=== PATIENT | male | born 1960 | race Caucasian/White ===

== ENCOUNTER 2025-02-21 06:22 | Emergency (ER) | payer OTHER ==
[2025-02-21] MEDS ORDERED: Acetaminophen 500 MG TAB ONE (08:36)
== END 2025-02-21 09:45 ==
LOC: EEVIPCON 06:22 → NAV ERS 06:22
DX: G89.11 Acute pain due to trauma (principal); M54.2 Cervicalgia; M25.551 Pain in right hip; E03.9 Hypothyroidism, unspecified; I10 Essential (primary) hypertension; Z79.890 Hormone replacement therapy; Z79.899 Other long term (current) drug therapy; W19.XXXA Unspecified fall, initial encounter
CPT/HCPCS: 70450; 72125; G0390

== ENCOUNTER 2025-02-22 06:06 | Emergency (ER) | payer OTHER ==
[2025-02-22] MEDS ORDERED: Ondansetron PF 4 MG/2 ML Vial ONE (06:32)
[2025-02-22 06:42] LABS: #Basophils 0.1 thou/uL (0.0-0.2); #Eosinophils 0.1 thou/uL (0.0-0.7); #Lymphocytes 0.9 thou/uL (1.20-3.40); #Monocytes 0.5 thou/uL (0.11-0.59); #Neutrophils 3.4 thou/uL (1.40-6.50); %Basophils 1.0 % (0.0-1.0); %Eosinophils 1.0 % (0.0-10.0); %Lymphocytes 18.8 % (21.0-51.0); %Monocytes 9.2 % (0.0-10.0); %Neutrophils 70.0 % (42.0-75.0); Hematocrit 41.9 % (42.0-52.0); Hemoglobin 14.4 g/dL (14.0-18.0); Mean Corpuscular Hemoglobin 29.1 pg (27.0-31.0); Mean Corpuscular Volume 85.0 fl (78.0-98.0); Platelet Count 200 10x3/uL (130-400); Red Blood Cell (RBC) Count 4.93 mill/uL (4.70-6.10); White Blood Cell (WBC) Count 4.9 10x3/uL (4.8-10.8)
[2025-02-22 06:56] LABS: ALT (SGPT) 14 U/L (Less than 45); AST (SGOT) 22 U/L (11-34); Albumin 4.0 g/dL (3.1-4.5); Alkaline Phosphatase 46 U/L (40-110); Anion Gap 13 mmol/L (10-20); BUN (Urea Nitrogen) 15 mg/dL (8.4-25.7); Bilirubin, Total 0.6 mg/dL (0.3-1.2); Calc. Creatinine Clearance 0 mL/min (70-130); Calcium 9.9 mg/dL (7.8-10.44); Carbon Dioxide 21 mmol/L (23-31); Chloride 110 mmol/L (98-107); Globulin 2.7 g/dL (2.4-3.5); Glucose 91 mg/dL (80-115); Potassium 4.4 mmol/L (3.5-5.1); Sodium 140 mmol/L (136-145)
== END 2025-02-22 08:20 | disposition home or self-care (01) ==
LOC: NAV ERS 06:06
DX: S93.401A Sprain of unspecified ligament of right ankle, initial encounter (principal); S05.11XA Contusion of eyeball and orbital tissues, right eye, initial encounter; S80.01XA Contusion of right knee, initial encounter; R29.6 Repeated falls; E03.9 Hypothyroidism, unspecified; I10 Essential (primary) hypertension; Z75.3 Unavailability and inaccessibility of health-care facilities; Z79.890 Hormone replacement therapy; Z79.899 Other long term (current) drug therapy; W01.10XA Fall on same level from slipping, tripping and stumbling with subsequent striking against unspecified object, initial encounter; Y93.89 Activity, other specified; Y92.143 Cell of prison as the place of occurrence of the external cause
CPT/HCPCS: 70450; 72125; 80053; 85025; 96374; 96375; G0390; J2272